=== PATIENT | male | born 1950 | race Caucasian/White ===

== ENCOUNTER 2017-07-16 06:29 | Emergency (ER) | payer MEDICARE, OTHER ==
[2015-05-01 12:41] VITALS: Wt 86.4 kg
[~2017-07-16 06:29] MED LIST: ACET500T68 PO; ALBU8.5H12 IH; ASP325 PO; ATOR40TA24 PO; ATR80PT PO; BUDE0.256 IH; CIPR-344 PO; CITA-156 PO; CLOP75TA43 PO; COM14R INH; DICY10CA11 PO; DULERAPT INH; ESOM40CA42 PO; EZET10TA41 PO; FAMO20TA28 PO; FENT-17 TD; GABA-549 PO; GABA-551 PO; HCTZ25 PO; HYDR-2966 PO; HYDR-4309 PO; HYDR2TAB74 PO; LISI-374 PO; LISI20TA29 PO; LOR5/325 PO; LORA-1455 PO; METO-224 PO; METO-734 PO; OMEP-125 PO; ONDA4TAB PO; ONDA4TAB97 PO; PANT40TA63 PO; PANT40TA65 PO; PROM-110 PO; PROM12.514 RC; PROM25SU8 PR; PROM25SU9 RC; RAMI5CAP72 PO; SUCR1TAB85 PO; TAMS0.4C25 PO; [UNRECOGNIZED DRUG - CODE] PO; [UNRECOGNIZED DRUG - OTHER] PO
[2017-07-16] MEDS ORDERED: LR(*) 1000 ML BAG 1,000 ML IV ONE (06:34)
[2017-07-16] MEDS ORDERED: ONDANSETRON 4 MG/2 ML VIAL IVP ONE (06:35)
[2017-07-16] MEDS ORDERED: PROMETHAZINE 25 MG/ML 1 ML AMP IVP ONE (06:35)
[2017-07-16] MEDS ORDERED: PRED-1 PO (06:35)
[2017-07-16] MEDS ORDERED: [UNRECOGNIZED DRUG - REMARK] (06:35)
[2017-07-16 07:01] LABS: PLATELET COUNT, AUTOMATED 293 K/uL (150-450)
[2017-07-16] MEDS ORDERED: NS(*) 0.9% 1000 ML BAG 1,000 ML IV ONE (08:45)
[2017-07-16] MEDS ORDERED: METOCLOPRAMIDE 10 MG/2 ML SDV IVP ONE (08:45)
--- NOTE | 2017-07-16 08:56 | ER Report ---
History and Physical Time Seen By MD: 06:50 Hx. of Stated Complaint: N/V/D FOR 5 DAYS. HPI/ROS This is a 67-year-old male with multiple chronic medical problems who is well- known to the emergency department. He presents frequently for intractable nausea and vomiting. He presented to the emergency department this morning complaining of 5 days of intractable nausea vomiting. Also is worried about his blood pressure. Says that he hasn't taken his blood pressure meds in 5 days due to inability to take by mouth. He denies fever or chills. States his discomfort and nausea and vomiting is the same type of episode that he has had multiple times in the past. Remainder of the 14 system rev: Yes Allergies: Coded Allergies: No Known Drug Allergies (Verified , 07/16/17) Home Meds Active Scripts Metoclopramide Hcl (REGLAN) 10 Mg Tablet, 10 MG PO 3-4XD for Nausea for 10 Days , #20 TAB Prov:KASH ALAMO MD 07/16/17 Ondansetron (ZOFRAN ODT) 4 Mg Tab.rapdis, 8 MG PO Q6H Y for prn, #20 TAB.DORIS Prov:LUCA JEAN [facility] 03/25/17 Promethazine HCl (Phenergan) 25 Mg Supp.rect, 1 SUPP MT Q4H Y for NAUSEA/ VOMITING, #12 1 Refill Prov:HUGO RIGGS DO 12/03/16 Reported Medications [Abt For Sinus Surg] No Conflict Check 07/16/17 Prednisone 10 Mg Tab (PREDNISONE 10 MG TAB) 10 Mg Tablet, 10 MG PO QDAY, TAB 07/16/17 Hydrochlorothiazide (HYDROCHLOROTHIAZIDE) 25 Mg Tablet, 1 TAB PO QDAY, TAB 12/07/15 Lisinopril (LISINOPRIL) 20 Mg Tablet, 20 MG PO QDAY, TAB 12/07/15 Ezetimibe (ZETIA) 10 Mg Tablet, 10 MG PO QDAY 04/24/15 Clopidogrel Bisulfate (PLAVIX) 75 Mg Tablet, 1 TAB PO QDAY TAKE ONE TABLET BY MOUTH EVERY DAY 08/22/14 Albuterol Sul Hfa 90 Mcg 8 Gm (VENTOLIN HFA 90 MCG 8 GM) 8.5 Gm Hfa.aer.ad, 1-2 PUFF IH 3-4XD Y for SHORTNESS OF BREATH, INHALER 08/22/14 Atorvastatin (LIPITOR) 80 Mg Tab, 1 TAB PO QDAY, TAB TAKE ONE TABLET BY MOUTH ONCE A DAY AT BED TIME 08/07/14 Reviewed Nurses Notes: Yes Old Medical Records Reviewed: Yes Hx Smoking: No Smoking Status: Never Smoker Exposure to Second Hand Smoke?: No Hx Substance Use Disorder: No Hx Alcohol Use: Yes ( DAILY, states none this month) Constitutional Vital Sign - Last 24 Hours 07/16/17 07/16/17 07/16/17 07/16/17 06:33 06:33 06:36 06:45 Temp 98.0 Pulse 70 75 69 70 Resp 18 B/P (MAP) 186/124 (144) 186/124 187/129 (148) 181/123 (142) Pulse Ox 93 97 93 93 O2 Delivery Room Air 07/16/17 07/16/17 07/16/17 07/16/17 06:58 07:00 07:15 07:30 Pulse 69 69 67 B/P (MAP) 183/119 (140) 182/116 (138) 181/124 (143) Pulse Ox 98 98 98 O2 Flow Rate 3.0 07/16/17 07/16/17 07/16/17 07/16/17 07:45 08:00 08:15 08:30 Pulse 70 68 70 B/P (MAP) 197/125 (149) 184/116 (138) 179/114 (135) 204/130 (154) Pulse Ox 98 97 98 07/16/17 07/16/17 07/16/17 07/16/17 08:37 08:45 09:00 09:15 Pulse 70 70 B/P (MAP) 199/119 (145) 194/123 (146) 181/121 (141) 187/121 (143) Pulse Ox 98 97 07/16/17 07/16/17 07/16/17 07/16/17 09:30 09:45 10:00 10:15 Pulse 71 74 71 B/P (MAP) 138/83 (101) 115/79 (91) 138/94 (109) 166/101 (122) Pulse Ox 98 98 07/16/17 10:30 Pulse 75 B/P (MAP) 163/101 (121) Pulse Ox 95 Intake and Output 07/16/17 07/16/17 07/17/17 15:00 23:00 07:00 Intake Total 1000 ml Balance 1000 ml Physical Exam General Appearance: The patient is alert, has no immediate need for airway protection and no current signs of toxicity. Eyes: Pupils equal and round no injection. Respiratory: Chest is non tender, lungs are clear to auscultation. Cardiac: regular rate and rhythm Gastrointestinal: Abdomen is soft and non tender, no masses, bowel sounds normal. DIFFERENTIAL DIAGNOSIS: After history and physical exam differential diagnosis was considered for abdominal pain including but not limited to appendicitis, cholecystitis, gastritis and urinary tract infection. Medical Decision Making Data Points Result Diagram: 07/16/17 0640 07/16/17 0640 Laboratory Hematology Test 07/16/17 06:40 Red Blood Count 5.24 M/uL (4.00-5.60) Mean Corpuscular Volume 96.8 fL (80.0-96.0) Mean Corpuscular Hemoglobin 33.3 pg (26.0-33.0) Mean Corpuscular Hemoglobin Concent 34.4 g/dL (32.0-36.0) Red Cell Distribution Width 14.2 % (11.5-14.5) Mean Platelet Volume 7.5 fL (7.2-11.1) Neutrophils (%) (Auto) 78.2 % (39.4-72.5) Lymphocytes (%) (Auto) 14.7 % (17.6-49.6) Monocytes (%) (Auto) 6.4 % (4.1-12.4) Eosinophils (%) (Auto) 0.2 % (0.4-6.7) Basophils (%) (Auto) 0.5 % (0.3-1.4) Nucleated RBC Relative Count (auto) 0.1 /100WBC Neutrophils # (Auto) 6.5 K/uL (2.0-7.4) Lymphocytes # (Auto) 1.2 K/uL (1.3-3.6) Monocytes # (Auto) 0.5 K/uL (0.3-1.0) Eosinophils # (Auto) 0.0 K/uL (0.0-0.5) Basophils # (Auto) 0.0 K/uL (0.0-0.1) Nucleated RBC Absolute Count (auto) 0.01 K/uL Sodium Level 138 mmol/L (137-145) Potassium Level 3.5 mmol/L (3.5-5.0) Chloride Level 96 mmol/L (98-107) Carbon Dioxide Level 27 mmol/L (22-30) Blood Urea Nitrogen 28 mg/dl (9-21) Creatinine 1.40 mg/dl (0.66-1.25) Glomerular Filtration Rate Calc 50.9 Random Glucose 126 mg/dl (75-110) Calcium Level 10.4 mg/dl (8.4-10.2) Total Bilirubin 0.8 mg/dl (0.2-1.3) Aspartate Amino Transf (AST/SGOT) 27 U/L (0-35) Alanine Aminotransferase (ALT/SGPT) 32 U/L (0-56) Alkaline Phosphatase 76 U/L (0-126) Total Protein 8.2 gm/dl (6.3-8.2) Albumin 4.4 g/dl (3.5-5.0) Amylase Level 56 U/L (0-110) Lipase 49 U/L (23-300) Chemistry Test 07/16/17 06:40 White Blood Count 8.3 k/uL (4.5-11.0) Red Blood Count 5.24 M/uL (4.00-5.60) Hemoglobin 17.5 g/dL (14.0-18.0) Hematocrit 50.8 % (42.0-52.0) Mean Corpuscular Volume 96.8 fL (80.0-96.0) Mean Corpuscular Hemoglobin 33.3 pg (26.0-33.0) Mean Corpuscular Hemoglobin Concent 34.4 g/dL (32.0-36.0) Red Cell Distribution Width 14.2 % (11.5-14.5) Platelet Count 293 K/uL (150-450) Mean Platelet Volume 7.5 fL (7.2-11.1) Neutrophils (%) (Auto) 78.2 % (39.4-72.5) Lymphocytes (%) (Auto) 14.7 % (17.6-49.6) Monocytes (%) (Auto) 6.4 % (4.1-12.4) Eosinophils (%) (Auto) 0.2 % (0.4-6.7) Basophils (%) (Auto) 0.5 % (0.3-1.4) Nucleated RBC Relative Count (auto) 0.1 /100WBC Neutrophils # (Auto) 6.5 K/uL (2.0-7.4) Lymphocytes # (Auto) 1.2 K/uL (1.3-3.6) Monocytes # (Auto) 0.5 K/uL (0.3-1.0) Eosinophils # (Auto) 0.0 K/uL (0.0-0.5) Basophils # (Auto) 0.0 K/uL (0.0-0.1) Nucleated RBC Absolute Count (auto) 0.01 K/uL Glomerular Filtration Rate Calc 50.9 Calcium Level 10.4 mg/dl (8.4-10.2) Total Bilirubin 0.8 mg/dl (0.2-1.3) Aspartate Amino Transf (AST/SGOT) 27 U/L (0-35) Alanine Aminotransferase (ALT/SGPT) 32 U/L (0-56) Alkaline Phosphatase 76 U/L (0-126) Total Protein 8.2 gm/dl (6.3-8.2) Albumin 4.4 g/dl (3.5-5.0) Amylase Level 56 U/L (0-110) Lipase 49 U/L (23-300) ED Course/Re-evaluation ED Course This is a 67-year-old male with multiple medical problems who is frequently seen in the emergency department for intractable nausea and vomiting. He presented to the emergency department early this morning with 5 days of intractable nausea and vomiting and inability to take his home blood pressure meds. This episode was similar to multiple episodes he has had in the past. Says he did not call his primary care physician in the past 5 days because "he will just come to the emergency department." His labs are at baseline including a mildly elevated calcium which she has had in the past. He was given 2 L of IV fluids. He was initially given Phenergan as well as Zofran with continued intractable nausea and vomiting. He was then given 10 mg of IV Reglan which controlled his symptoms. He stated that he felt much better, and was able to take by mouth in the ED without vomiting. I will discharge him with by mouth Reglan. I told him not to take Reglan and Phenergan at the same time. He voices understanding, and will follow-up with his primary care doctor. Decision to Disposition Date: Jul 16, 2017 Decision to Disposition Time: 10:17 Depart Departure Latest Vital Signs Vital Signs Date Time Temp Pulse Resp B/P (MAP) Pulse Ox O2 Delivery O2 Flow Rate FiO2 07/16/17 10:30 75 163/101 (121) 95 07/16/17 06:58 3.0 07/16/17 06:33 98.0 18 Room Air Impression: Primary Impression: Nausea & vomiting Condition: Improved Disposition: HOME OR SELF-CARE Referrals: CODY FLETCHER MD (PCP) New Scripts Metoclopramide Hcl (REGLAN) 10 Mg Tablet 10 MG PO 3-4XD for Nausea for 10 Days, #20 TAB Prov: KASH ALAMO MD 07/16/17 Patient Instructions: Acute Nausea and Vomiting (ED) Additional Instructions: Stop taking Phenergan if you are taking Reglan. Do not take both of these medications. Take one or the other Problem Qualifiers Primary Impression: Nausea & vomiting Vomiting type: unspecified Vomiting Intractability: non-intractable Qualified Codes: R11.2 - Nausea with vomiting, unspecified KASH ALAMO MD Jul 16, 2017 08:56
[2017-07-16] MEDS ORDERED: METO-734 PO (10:21)
[2017-07-16 10:30] VITALS: BP 163/101
== END 2017-07-16 11:24 | disposition home or self-care (01) ==
LOC: ER 06:34
DX: R11.2 Nausea with vomiting, unspecified (principal)
CPT/HCPCS: 82150; 83690; 85025; 96361; 96374; 96375; 99284; J2405; J2550; J2765; J7030; J7120; 82040; 82247; 82310; 82374; 82435; 82565; 82947; 84075; 84132; 84155; 84295; 84450; 84460; 84520

== ENCOUNTER 2017-08-26 12:03 | Emergency (ER) | payer MEDICARE, OTHER ==
[2015-05-01 12:41] VITALS: Wt 86.2 kg
[~2017-08-26 12:03] MED LIST changes: +PRED-1 PO; +[UNRECOGNIZED DRUG - REMARK]
--- NOTE | 2017-08-26 12:10 | ER Report ---
History and Physical Time Seen By MD: 12:09 Hx. of Stated Complaint: HX OF N/V FOR 3 DAYS, HAS HAD MULTIPLE TIMES IN THE PAST HPI/ROS CHIEF COMPLAINT: Recurrent nausea and vomiting HISTORY OF PRESENT ILLNESS: This is a 67-year-old male, well-known to the emergency department, presents to the emergency department with his for nausea vomiting. Patient has had recurrent nausea and vomiting for last several years secondary to a surgery. Patient states that over the last 3 days he's had an increase in nausea vomiting, is unable to keep anything down today, trying one dose of Reglan "threw it up" however did not try the Phenergan suppositories or the ODT Zofran and. Patient denies increased abdominal pain, headaches, shortness of breath or chest pain. Patient does state that his vomit was darker than usual however there was no blood or coffee grounds noted. No diarrhea or dark stools. REVIEW OF SYSTEMS: Respiratory: No cough, no dyspnea. Cardiovascular: No chest pain, no palpitations. Gastrointestinal: As above. Musculoskeletal: No back pain. Allergies: Coded Allergies: No Known Drug Allergies (Verified , 08/26/17) Home Meds Active Scripts Promethazine HCl (Phenergan) 25 Mg Supp.rect, 25 MG MO Q8H, #12 SUPP.RECT 0 Refills Prov:LUCA JEAN [facility]- 08/26/17 Ondansetron (ZOFRAN ODT) 4 Mg Tab.rapdis, 4 MG PO Q6H Y for NAUSEA/VOMITING, # 20 TAB.DORIS Prov:LUCA JEAN [facility] 08/26/17 Metoclopramide Hcl (REGLAN) 10 Mg Tablet, 10 MG PO 3-4XD for Nausea for 10 Days , #20 TAB Prov:KASH ALAMO MD 07/16/17 Reported Medications Hydrochlorothiazide (HYDROCHLOROTHIAZIDE) 25 Mg Tablet, 1 TAB PO QDAY, TAB 12/07/15 Lisinopril (LISINOPRIL) 20 Mg Tablet, 20 MG PO QDAY, TAB 12/07/15 Ezetimibe (ZETIA) 10 Mg Tablet, 10 MG PO QDAY 04/24/15 Clopidogrel Bisulfate (PLAVIX) 75 Mg Tablet, 1 TAB PO QDAY TAKE ONE TABLET BY MOUTH EVERY DAY 08/22/14 Albuterol Sul Hfa 90 Mcg 8 Gm (VENTOLIN HFA 90 MCG 8 GM) 8.5 Gm Hfa.aer.ad, 1-2 PUFF IH 3-4XD Y for SHORTNESS OF BREATH, INHALER 08/22/14 Atorvastatin (LIPITOR) 80 Mg Tab, 1 TAB PO QDAY, TAB TAKE ONE TABLET BY MOUTH ONCE A DAY AT BED TIME 08/07/14 Discontinued Reported Medications [Abt For Sinus Surg] No Conflict Check 07/16/17 Prednisone 10 Mg Tab (PREDNISONE 10 MG TAB) 10 Mg Tablet, 10 MG PO QDAY, TAB 07/16/17 Discontinued Scripts Ondansetron (ZOFRAN ODT) 4 Mg Tab.rapdis, 8 MG PO Q6H Y for prn, #20 TAB.DORIS Prov:LUCA JEAN [facility] 03/25/17 Promethazine HCl (Phenergan) 25 Mg Supp.rect, 1 SUPP MO Q4H Y for NAUSEA/ VOMITING, #12 1 Refill Prov:HUGO RIGGS DO 12/03/16 Past Medical/Surgical History Patient has a past medical and surgical history of migraines, heart attack, hypertension, hypercholesterolemia, asthma, cyclical vomiting, GERD, hiatal hernia surgery with complications, gallbladder disease, cholecystectomy, wears glasses, hearing aides, depression, anxiety, cardiac catheter, laminectomy, tonsillectomy. Reviewed Nurses Notes: Yes Hx Smoking: No Smoking Status: Never Smoker Exposure to Second Hand Smoke?: No Hx Substance Use Disorder: No Hx Alcohol Use: Yes ( DAILY, states none this month) Constitutional Vital Sign - Last 24 Hours 08/26/17 08/26/17 08/26/17 08/26/17 12:06 12:06 12:30 12:33 Temp 98.4 Pulse 78 Resp 20 B/P (MAP) 163/111 163/111 (128) 151/95 (113) Pulse Ox 91 92 O2 Delivery Room Air 08/26/17 08/26/17 08/26/17 08/26/17 13:00 13:03 13:30 13:33 Pulse 79 75 B/P (MAP) 132/72 (92) 152/85 (107) Pulse Ox 94 99 08/26/17 08/26/17 08/26/17 08/26/17 13:38 14:00 14:08 14:30 Pulse 72 72 B/P (MAP) 97/60 (72) 136/79 (98) Pulse Ox 100 91 08/26/17 08/26/17 08/26/17 08/26/17 14:38 15:00 15:30 16:00 Pulse 76 B/P (MAP) 150/90 (110) 157/95 (115) 147/88 (107) Pulse Ox 93 Intake and Output 08/26/17 08/26/17 08/27/17 15:00 23:00 07:00 Intake Total 1000 ml 1000 ml Balance 1000 ml 1000 ml Physical Exam General Appearance: The patient is alert, has no immediate need for airway protection and no current signs of toxicity. Eyes: Pupils equal and round no injection. Respiratory: Chest is non tender, lungs are clear to auscultation. Cardiac: regular rate and rhythm, no murmurs, clicks or rubs. Gastrointestinal: Abdomen is soft and non tender, no masses, bowel sounds normal. Musculoskeletal: Neck: Neck is supple and non tender. Extremities have full range of motion and are non tender. Skin: No rashes or lesions. DIFFERENTIAL DIAGNOSIS: After history and physical exam differential diagnosis was considered for nausea and vomiting including but not limited to gastroenteritis, gastritis, appendicitis, and medication side effect. Medical Decision Making Data Points Result Diagram: 08/26/17 1212 08/26/17 1212 Laboratory Hematology Test 08/26/17 12:12 Red Blood Count 5.60 M/uL (4.00-5.60) Mean Corpuscular Volume 94.2 fL (80.0-96.0) Mean Corpuscular Hemoglobin 32.6 pg (26.0-33.0) Mean Corpuscular Hemoglobin Concent 34.6 g/dL (32.0-36.0) Red Cell Distribution Width 13.8 % (11.5-14.5) Mean Platelet Volume 7.9 fL (7.2-11.1) Neutrophils (%) (Auto) 84.2 % (39.4-72.5) Lymphocytes (%) (Auto) 10.1 % (17.6-49.6) Monocytes (%) (Auto) 5.4 % (4.1-12.4) Eosinophils (%) (Auto) 0.0 % (0.4-6.7) Basophils (%) (Auto) 0.3 % (0.3-1.4) Nucleated RBC Relative Count (auto) 0.1 /100WBC Neutrophils # (Auto) 8.8 K/uL (2.0-7.4) Lymphocytes # (Auto) 1.1 K/uL (1.3-3.6) Monocytes # (Auto) 0.6 K/uL (0.3-1.0) Eosinophils # (Auto) 0.0 K/uL (0.0-0.5) Basophils # (Auto) 0.0 K/uL (0.0-0.1) Nucleated RBC Absolute Count (auto) 0.01 K/uL Sodium Level 137 mmol/L (137-145) Potassium Level 3.7 mmol/L (3.5-5.0) Chloride Level 96 mmol/L (98-107) Carbon Dioxide Level 23 mmol/L (22-30) Blood Urea Nitrogen 44 mg/dl (9-21) Creatinine 1.50 mg/dl (0.66-1.25) Glomerular Filtration Rate Calc 47.0 Random Glucose 139 mg/dl (75-110) Calcium Level 9.9 mg/dl (8.4-10.2) Total Bilirubin 0.9 mg/dl (0.2-1.3) Aspartate Amino Transf (AST/SGOT) 29 U/L (0-35) Alanine Aminotransferase (ALT/SGPT) 24 U/L (0-56) Alkaline Phosphatase 94 U/L (0-126) Total Protein 8.4 gm/dl (6.3-8.2) Albumin 4.8 g/dl (3.5-5.0) Lipase 88 U/L (23-300) Chemistry Test 08/26/17 12:12 White Blood Count 10.4 k/uL (4.5-11.0) Red Blood Count 5.60 M/uL (4.00-5.60) Hemoglobin 18.2 g/dL (14.0-18.0) Hematocrit 52.7 % (42.0-52.0) Mean Corpuscular Volume 94.2 fL (80.0-96.0) Mean Corpuscular Hemoglobin 32.6 pg (26.0-33.0) Mean Corpuscular Hemoglobin Concent 34.6 g/dL (32.0-36.0) Red Cell Distribution Width 13.8 % (11.5-14.5) Platelet Count 275 K/uL (150-450) Mean Platelet Volume 7.9 fL (7.2-11.1) Neutrophils (%) (Auto) 84.2 % (39.4-72.5) Lymphocytes (%) (Auto) 10.1 % (17.6-49.6) Monocytes (%) (Auto) 5.4 % (4.1-12.4) Eosinophils (%) (Auto) 0.0 % (0.4-6.7) Basophils (%) (Auto) 0.3 % (0.3-1.4) Nucleated RBC Relative Count (auto) 0.1 /100WBC Neutrophils # (Auto) 8.8 K/uL (2.0-7.4) Lymphocytes # (Auto) 1.1 K/uL (1.3-3.6) Monocytes # (Auto) 0.6 K/uL (0.3-1.0) Eosinophils # (Auto) 0.0 K/uL (0.0-0.5) Basophils # (Auto) 0.0 K/uL (0.0-0.1) Nucleated RBC Absolute Count (auto) 0.01 K/uL Glomerular Filtration Rate Calc 47.0 Calcium Level 9.9 mg/dl (8.4-10.2) Total Bilirubin 0.9 mg/dl (0.2-1.3) Aspartate Amino Transf (AST/SGOT) 29 U/L (0-35) Alanine Aminotransferase (ALT/SGPT) 24 U/L (0-56) Alkaline Phosphatase 94 U/L (0-126) Total Protein 8.4 gm/dl (6.3-8.2) Albumin 4.8 g/dl (3.5-5.0) Lipase 88 U/L (23-300) ED Course/Re-evaluation Clinical Indication for ER IV: Hydration, IV Access ED Course The patient was admitted to room. A history physical obtained. Differential diagnoses were considered. An IV was started. A CBC, CMP were obtained. Slight hemoconcentration consistent with the patient's nausea and vomiting, Creatinine of 1.50, consistent with the patient's previous creatinine levels. Patient was given 1 L normal saline 2, 8 mg IV Zofran, 12.5 mg IV Phenergan, 1000 mg by mouth Tylenol. Patient states he is feeling better, nausea has improved, slight improvement with the Tylenol. Patient was instructed to follow-up with his primary care provider. Patient was also given a prescription for Zofran and Phenergan suppositories. Patient was instructed not to take the Phenergan and the Reglan together. Patient had no other questions or concerns at this time and was discharged home. 08/26/2017 1:07:06 pm patient states the nausea is mildly better however the patient states "I can't tell if it's nausea or chest pain that is causing nausea ". I did tell the patient that we will give him another liter of fluid and try Phenergan. Patient is on the treatment program. 08/26/2017 3:30:58 pm I did do the room, patient was on his right side resting comfortably. Patient did wake to voice patient is requesting Tylenol for his pain, I did order Tylenol. Patient is otherwise feeling better after the 2 L of normal saline and nausea medications. Decision to Disposition Date: August 26, 2017 Decision to Disposition Time: 16:06 Depart Departure Latest Vital Signs Vital Signs Date Time Temp Pulse Resp B/P (MAP) Pulse Ox O2 Delivery O2 Flow Rate FiO2 08/26/17 16:00 147/88 (107) 08/26/17 14:38 76 93 08/26/17 12:06 98.4 20 Room Air Impression: Primary Impression: Nausea & vomiting Condition: Improved Disposition: HOME OR SELF-CARE Referrals: CODY FLETCHER MD (PCP) New Scripts Promethazine HCl (Phenergan) 25 Mg Supp.rect 25 MG MO Q8H, #12 SUPP.RECT 0 Refills Prov: LUCA JEAN [facility]- 08/26/17 Ondansetron (ZOFRAN ODT) 4 Mg Tab.rapdis 4 MG PO Q6H Y for NAUSEA/VOMITING, #20 TAB.DORIS Prov: LUCA JEAN [facility]- 08/26/17 Patient Instructions: Acute Nausea and Vomiting (ED) Additional Instructions: Drink sips of fluid, consider a clear liquid diet for the next 24 hours. Slowly progress into your normal diet after the 24 hours. Follow-up with your primary care provider as scheduled. The Reglan is not working try the ODT Zofran, if here and able to keep the Reglan down then try the Phenergan suppository just don't take the Reglan and Phenergan together. Return to the emergency department for any other concerns or worsening symptoms. Problem Qualifiers Primary Impression: Nausea & vomiting Vomiting type: unspecified Vomiting Intractability: non-intractable Qualified Codes: R11.2 - Nausea with vomiting, unspecified LUCA JEANP- August 26, 2017 12:10
[2017-08-26] MEDS ORDERED: NS(*) 0.9% 1000 ML BAG 1,000 ML IV ONE ×2 (12:18→13:05)
[2017-08-26] MEDS ORDERED: ONDANSETRON 4 MG/2 ML VIAL IVP ONE (12:20)
[2017-08-26 12:27] LABS: PLATELET COUNT, AUTOMATED 275 K/uL (150-450)
[2017-08-26] MEDS ORDERED: PROMETHAZINE 25 MG/ML 1 ML AMP IVP ONE (13:05)
[2017-08-26] MEDS ORDERED: ACETAMINOPHEN 500 MG TAB PO ONE (15:10)
[2017-08-26 16:00] VITALS: BP 147/88
[2017-08-26] MEDS ORDERED: PROM25SU8 PR (16:19)
[2017-08-26] MEDS ORDERED: ONDA4TAB PO (16:19)
== END 2017-08-26 16:25 | disposition home or self-care (01) ==
LOC: ER 12:11
DX: R11.2 Nausea with vomiting, unspecified (principal)
CPT/HCPCS: 83690; 85025; 96361; 96374; 96375; 99284; A9270; J2405; J2550; J7030; 82040; 82247; 82310; 82374; 82435; 82565; 82947; 84075; 84132; 84155; 84295; 84450; 84460; 84520

== ENCOUNTER 2017-12-13 08:06 | Emergency (ER) | payer MEDICARE, OTHER ==
[2015-05-01 12:41] VITALS: Wt 86.2 kg
--- NOTE | 2017-12-13 08:09 | ER Report ---
History and Physical Time Seen By MD: 08:09 HPI/ROS CHIEF COMPLAINT: Nausea vomiting HISTORY OF PRESENT ILLNESS: Patient is a 67-year-old male with history of cyclical vomiting syndrome status post a hiatal hernia repair that occurred in 2014. Patient has frequent visits to emergency department for intractable vomiting. States that symptoms began this past Sunday and if increased in frequency. He feels "dehydrated" and is having generalized abdominal discomfort. No reported fever. States that he is unable to keep anything down. REVIEW OF SYSTEMS: Respiratory: No cough, no dyspnea. Cardiovascular: No chest pain, no palpitations. Gastrointestinal: Intractable vomiting generalized abdominal pain Musculoskeletal: No back pain. Allergies: Coded Allergies: No Known Drug Allergies (Verified , 12/13/17) Home Meds Active Scripts Promethazine HCl (Phenergan) 25 Mg Supp.rect, 25 MG CA Q8H, #12 SUPP.RECT 0 Refills Prov:LUCA JEAN [facility] 08/26/17 Reported Medications Hydrochlorothiazide (HYDROCHLOROTHIAZIDE) 25 Mg Tablet, 1 TAB PO QDAY, TAB 12/07/15 Lisinopril (LISINOPRIL) 20 Mg Tablet, 20 MG PO QDAY, TAB 12/07/15 Ezetimibe (ZETIA) 10 Mg Tablet, 10 MG PO QDAY 04/24/15 Clopidogrel Bisulfate (PLAVIX) 75 Mg Tablet, 1 TAB PO QDAY TAKE ONE TABLET BY MOUTH EVERY DAY 08/22/14 Albuterol Sul Hfa 90 Mcg 8 Gm (VENTOLIN HFA 90 MCG 8 GM) 8.5 Gm Hfa.aer.ad, 1-2 PUFF IH 3-4XD PRN for SHORTNESS OF BREATH, INHALER 08/22/14 Atorvastatin (LIPITOR) 80 Mg Tab, 1 TAB PO QDAY, TAB TAKE ONE TABLET BY MOUTH ONCE A DAY AT BED TIME 08/07/14 Discontinued Scripts Ondansetron (ZOFRAN ODT) 4 Mg Tab.rapdis, 4 MG PO Q6H PRN for NAUSEA/VOMITING, #20 TAB.DORIS Prov:LUCA JEAN [facility] 08/26/17 Metoclopramide Hcl (REGLAN) 10 Mg Tablet, 10 MG PO 3-4XD for Nausea for 10 Days, #20 TAB Prov:KASH ALAMO MD 07/16/17 Past Medical/Surgical History Patient has a past medical and surgical history of migraines, heart attack, hypertension, hypercholesterolemia, asthma, cyclical vomiting, GERD, hiatal hernia surgery with complications, gallbladder disease, cholecystectomy, wears glasses, hearing aides, depression, anxiety, cardiac catheter, laminectomy, tonsillectomy. Hx Smoking: No Smoking Status: Never Smoker Exposure to Second Hand Smoke?: No Hx Substance Use Disorder: No Hx Alcohol Use: Yes ( DAILY, states none this month) Constitutional Vital Sign - Last 24 Hours 12/13/17 12/13/17 12/13/17 12/13/17 08:09 08:13 08:36 09:00 Temp 98.2 Pulse 74 ??? Resp 20 B/P (MAP) 154/96 154/96 (115) 153/112 (126) Pulse Ox 95 O2 Delivery Room Air Physical Exam General Appearance: The patient is alert, has no immediate need for airway protection and no signs of toxicity. Eyes: Pupils equal and round no pallor or injection. ENT, Mouth: Mucous membranes are moist. Respiratory: There are no retractions, lungs are clear to auscultation. Cardiovascular: Regular rate and rhythm. Gastrointestinal: Abdomen is diffusely tender without voluntary or involuntary guarding no obvious peritoneal signs Neurological: Awake and alert Skin: Warm and dry, no rashes. Musculoskeletal: Neck is supple non tender. Extremities are nontender, nonswollen and have full range of motion. Medical Decision Making Data Points Result Diagram: 12/13/17 0820 12/13/17 0820 Laboratory Hematology Test 12/13/17 08:20 Red Blood Count 5.25 M/uL (4.00-5.60) Mean Corpuscular Volume 98.5 fL (80.0-96.0) Mean Corpuscular Hemoglobin 32.9 pg (26.0-33.0) Mean Corpuscular Hemoglobin Concent 33.4 g/dL (32.0-36.0) Red Cell Distribution Width 15.0 % (11.5-14.5) Mean Platelet Volume 7.6 fL (7.2-11.1) Neutrophils (%) (Auto) 76.7 % (39.4-72.5) Lymphocytes (%) (Auto) 16.6 % (17.6-49.6) Monocytes (%) (Auto) 6.3 % (4.1-12.4) Eosinophils (%) (Auto) 0.0 % (0.4-6.7) Basophils (%) (Auto) 0.4 % (0.3-1.4) Nucleated RBC Relative Count (auto) 0.0 /100WBC Neutrophils # (Auto) 5.5 K/uL (2.0-7.4) Lymphocytes # (Auto) 1.2 K/uL (1.3-3.6) Monocytes # (Auto) 0.4 K/uL (0.3-1.0) Eosinophils # (Auto) 0.0 K/uL (0.0-0.5) Basophils # (Auto) 0.0 K/uL (0.0-0.1) Nucleated RBC Absolute Count (auto) 0.00 K/uL Sodium Level 142 mmol/L (137-145) Potassium Level 3.7 mmol/L (3.5-5.0) Chloride Level 100 mmol/L (98-107) Carbon Dioxide Level 27 mmol/L (22-30) Blood Urea Nitrogen 48 mg/dl (9-21) Creatinine 1.50 mg/dl (0.66-1.25) Glomerular Filtration Rate Calc 47.0 Random Glucose 162 mg/dl (75-110) Calcium Level 9.5 mg/dl (8.4-10.2) Total Bilirubin 1.0 mg/dl (0.2-1.3) Aspartate Amino Transf (AST/SGOT) 32 U/L (0-35) Alanine Aminotransferase (ALT/SGPT) 37 U/L (0-56) Alkaline Phosphatase 61 U/L (0-126) Total Protein 8.1 g/dl (6.3-8.2) Albumin 4.7 g/dl (3.5-5.0) Lipase 76 U/L (23-300) Helicobacter pylori IgG Antibody Negative (NEGATIVE) Chemistry Test 12/13/17 08:20 White Blood Count 7.1 k/uL (4.5-11.0) Red Blood Count 5.25 M/uL (4.00-5.60) Hemoglobin 17.3 g/dL (14.0-18.0) Hematocrit 51.7 % (42.0-52.0) Mean Corpuscular Volume 98.5 fL (80.0-96.0) Mean Corpuscular Hemoglobin 32.9 pg (26.0-33.0) Mean Corpuscular Hemoglobin Concent 33.4 g/dL (32.0-36.0) Red Cell Distribution Width 15.0 % (11.5-14.5) Platelet Count 230 K/uL (150-450) Mean Platelet Volume 7.6 fL (7.2-11.1) Neutrophils (%) (Auto) 76.7 % (39.4-72.5) Lymphocytes (%) (Auto) 16.6 % (17.6-49.6) Monocytes (%) (Auto) 6.3 % (4.1-12.4) Eosinophils (%) (Auto) 0.0 % (0.4-6.7) Basophils (%) (Auto) 0.4 % (0.3-1.4) Nucleated RBC Relative Count (auto) 0.0 /100WBC Neutrophils # (Auto) 5.5 K/uL (2.0-7.4) Lymphocytes # (Auto) 1.2 K/uL (1.3-3.6) Monocytes # (Auto) 0.4 K/uL (0.3-1.0) Eosinophils # (Auto) 0.0 K/uL (0.0-0.5) Basophils # (Auto) 0.0 K/uL (0.0-0.1) Nucleated RBC Absolute Count (auto) 0.00 K/uL Glomerular Filtration Rate Calc 47.0 Calcium Level 9.5 mg/dl (8.4-10.2) Total Bilirubin 1.0 mg/dl (0.2-1.3) Aspartate Amino Transf (AST/SGOT) 32 U/L (0-35) Alanine Aminotransferase (ALT/SGPT) 37 U/L (0-56) Alkaline Phosphatase 61 U/L (0-126) Total Protein 8.1 g/dl (6.3-8.2) Albumin 4.7 g/dl (3.5-5.0) Lipase 76 U/L (23-300) Helicobacter pylori IgG Antibody Negative (NEGATIVE) EKG/Imaging Imaging [place] [facility] [place]IENT NAME: J Carlos Hill : 1950 MR: [id number] V: [id number] EXAM DATE: ORDERING PHYSICIAN: KATYA CALZADA TECHNOLOGIST: [place] [facility] [place] Patient: J Carlos Hill : 1950 Visit/Account:[id number] Date of Sevice: 12/13/2017 Exam type: ACUTE ABDOMEN SERIES 3 VIEW History: Abdomen pain, nausea and vomiting Comparison: June 25, 2016 Findings: Supine and upright views the abdomen demonstrate a nonspecific bowel gas pattern. There is no free air beneath hemidiaphragms. Surgical clips are present in the right upper quadrant. PA view the chest reveals no evidence of acute infiltrates, pleural effusions or pulmonary edema. Cardiac silhouette is normal in size. There is mild prominence of the hilar shadows although appears similar to the prior study.. IMPRESSION: 1. Nonspecific bowel gas pattern No evidence of acute pulmonary consolidation Report Dictated By: Isamar Mckeon MD at 12/13/2017 9:54 AM Report E-Signed By: Isamar Mckeon MD at 12/13/2017 9:56 AM WSN:[email or web address] ED Course/Re-evaluation Clinical Indication for ER IV: Hydration, IV Access ED Course 12/13/2017 8:34:20 am plan at this time will be to place an IV to give IV hydration, antiemetics. We will check CBC CMP lipase. We'll also perform a acute abdominal series. We'll also give IV multivitamin. 12/13/2017 9:58:57 am patient still reporting nausea although the retching seems to have improved. Plan at this time will be to use haloperidol as an antiemetic we will give 5 mg IV. 12/13/2017 10:54:41 am patient sleeping comfortably symptoms improved after 5 mg of IV Haldol Decision to Disposition Date: Dec 13, 2017 Decision to Disposition Time: 10:53 Depart Departure Latest Vital Signs Vital Signs Date Time Temp Pulse Resp B/P (MAP) Pulse Ox O2 Delivery O2 Flow Rate FiO2 12/13/17 09:00 153/112 (126) 12/13/17 08:36 ??? 12/13/17 08:09 98.2 20 95 Room Air Impression: Primary Impression: Cyclic vomiting syndrome Condition: Improved Disposition: HOME OR SELF-CARE Referrals: CODY FLETHCER MD (PCP) 2 Days if symptoms persist Patient Instructions: Acute Nausea and Vomiting (ED) Problem Qualifiers Primary Impression: Cyclic vomiting syndrome Vomiting Intractability: intractable Nausea presence: with nausea Qualified Codes: G43.A1 - Cyclical vomiting, intractable KATYA CALZADA MD Dec 13, 2017 08:09
[2017-12-13] MEDS ORDERED: FAMOTIDINE(*) 20MG/50ML PREMIX 50 ML IVPB ONE (08:26)
[2017-12-13] MEDS: NS(*) 0.9% 1000 ML BAG 1,000 ML IV ONE ×2 (08:26→08:34)
[2017-12-13] MEDS ORDERED: diphenhydrAMINE 50 MG/ML VIAL IVP ONE (08:30)
[2017-12-13] MEDS ORDERED: METOCLOPRAMIDE 10 MG/2 ML SDV IVP ONE (08:30)
[2017-12-13] MEDS ORDERED: MULTIVITAMINS IV ONE (08:30)
[2017-12-13] MEDS ORDERED: NS IV ONE (08:30)
[2017-12-13 08:39] LABS: PLATELET COUNT, AUTOMATED 230 K/uL (150-450)
[2017-12-13] MEDS ORDERED: MULTIVITAMINS 10 ML VIAL IV ONE (08:55)
[2017-12-13 09:00] VITALS: BP 153/112
[2017-12-13] MEDS ORDERED: HALOPERIDOL LACT 5 MG/ML VIAL IM ONE (10:00)
--- NOTE | 2017-12-13 10:00 | RADIOLOGY IMAGING REPORT ---
[place] [facility] [place] J [place] Hill : 1950 MR: [id number] V: [id number] EXAM DATE: ORDERING PHYSICIAN: KATYA CALZADA TECHNOLOGIST: Location: [facility] - [place] Patient: J Carlos Hill : 1950 Visit/Account:[id number] Date of Sevice: 12/13/2017 Exam type: ACUTE ABDOMEN SERIES 3 VIEW History: Abdomen pain, nausea and vomiting Comparison: June 25, 2016 Findings: Supine and upright views the abdomen demonstrate a nonspecific bowel gas pattern. There is no free a ir beneath hemidiaphragms. Surgical clips are present in the right upper quadrant. PA view the ches t reveals no evidence of acute infiltrates, pleural effusions or pulmonary edema. Cardiac silhouette is normal in size. There is mild prominence of the hilar shadows although appears similar to the pr ior study.. IMPRESSION: 1. Nonspecific bowel gas pattern No evidence of acute pulmonary consolidation Report Dictated By: Isamar Mckeon MD at 12/13/2017 9:54 AM Report E-Signed By: Isamar Mckeon MD at 12/13/2017 9:56 AM WSN:[email or web address]
== END 2017-12-13 11:04 | disposition home or self-care (01) ==
LOC: ER 08:09
DX: G43.A1 Cyclical vomiting, in migraine, intractable (principal)
CPT/HCPCS: 74022; 83690; 85025; 86677; 96365; 96366; 96368; 96372; 96375; 99284; J1200; J1630; J2765; J3490; J7030; 82040; 82247; 82310; 82374; 82435; 82565; 82947; 84075; 84132; 84155; 84295; 84450; 84460; 84520

== ENCOUNTER 2018-04-12 10:17 | Inpatient (IN) | payer MEDICARE, OTHER ==
[2015-05-01 12:41] VITALS: Ht 177.8 cm; Wt 80.3 kg
[~2018-04-12] VITALS: Ht 177.8 cm; Wt 80.3 kg
[~2018-04-12 10:17] MED LIST changes: -HYDR-4309 PO; +HYDR-653 PO
--- NOTE | 2018-04-12 10:27 | ER Report ---
History and Physical Time Seen By MD: 10:26 Hx. of Stated Complaint: pt has been throwing up since sunday HPI/ROS CHIEF COMPLAINT: Nausea, vomiting, by mouth intolerance HISTORY OF PRESENT ILLNESS: Patient is a 68-year-old male here with complaints of nausea, vomiting, inability to tolerate by mouth intake since Sunday. Patient reports having recurrent episodes of cyclical vomiting during which she is unable to keep down food or fluids. He has been taking Phenergan at home in suppository form without relief of symptoms. Patient reports that he has been evaluated numerous times for similar episodes. Patient has markedly fluid depleted at time of evaluation. Patient is nontoxic in appearance. REVIEW OF SYSTEMS: Constitutional: No fever, no chills. Eyes: No discharge. ENT: No sore throat. Cardiovascular: No chest pain, no palpitations. Respiratory: No cough, no shortness of breath. Gastrointestinal: + epigastric abdominal pain, + persistent nausea and vomiting. Genitourinary: + decreased UO Musculoskeletal: + chronic back pain. Skin: No rashes. Neurological: + headache. Allergies: Coded Allergies: No Known Drug Allergies (Verified , 12/13/17) Home Meds Reported Medications Budesonide (BUDESONIDE) 0.5 Mg/2 Ml Ampul.neb, 1 MG NA QDAY, ML USES 2 AMPULES MIXED WITH SALINE A NASAL RINSE 04/12/18 Pantoprazole Sodium (PANTOPRAZOLE SODIUM) 40 Mg Tablet.dr, 40 MG PO QDAY, TAB.SR 04/12/18 Budesonide/Formoterol Fumarate (SYMBICORT 80-4.5 MCG INHALER) 10.2 Gm Hfa.aer.ad, 2 PUFF PO BID 04/12/18 Tamsulosin Hcl (FLOMAX) 0.4 Mg Cap.er.24h, 0.4 MG PO QDAY, CAP 04/12/18 Hydrochlorothiazide (HYDROCHLOROTHIAZIDE) 25 Mg Tablet, 1 TAB PO QDAY, TAB 12/07/15 Lisinopril (LISINOPRIL) 20 Mg Tablet, 20 MG PO QDAY, TAB 12/07/15 Ezetimibe (ZETIA) 10 Mg Tablet, 10 MG PO QDAY 04/24/15 Clopidogrel Bisulfate (PLAVIX) 75 Mg Tablet, 1 TAB PO QDAY TAKE ONE TABLET BY MOUTH EVERY DAY 5/23/15 Albuterol Sul Hfa 90 Mcg 8 Gm (VENTOLIN HFA 90 MCG 8 GM) 8.5 Gm Hfa.aer.ad, 1-2 PUFF IH Q4-6H PRN for SHORTNESS OF BREATH, INHALER 08/22/14 Atorvastatin (LIPITOR) 80 Mg Tab, 1 TAB PO QDAY, TAB TAKE ONE TABLET BY MOUTH ONCE A DAY AT BED TIME 08/07/14 Discontinued Scripts Promethazine HCl (Phenergan) 25 Mg Supp.rect, 25 MG [place] Q8H, #12 SUPP.RECT 0 Refills Prov:LUCA JEAN [employer] SOFTWARE CONSULTANT-BC 08/26/17 Hx Smoking: No Smoking Status: Never Smoker Exposure to Second Hand Smoke?: No Hx Substance Use Disorder: No Hx Alcohol Use: Yes ( DAILY, states none this month) Constitutional Vital Sign - Last 24 Hours 04/12/18 04/12/18 04/12/18 04/12/18 10:21 10:21 10:30 10:47 Temp 98.4 Pulse 97 75 Resp 20 B/P (MAP) 143/92 (109) 143/92 124/91 (102) Pulse Ox 96 94 O2 Delivery Room Air 04/12/18 04/12/18 04/12/18 04/12/18 11:00 11:05 11:30 11:35 Pulse 70 64 B/P (MAP) 145/94 (111) 144/97 (113) Pulse Ox 86 98 04/12/18 04/12/18 04/12/18 04/12/18 12:00 12:05 12:10 12:30 Pulse 69 68 B/P (MAP) 168/105 (126) 179/107 (131) Pulse Ox 100 99 04/12/18 04/12/18 04/12/18 04/12/18 12:40 13:00 13:10 13:30 Pulse 71 63 B/P (MAP) 184/109 (134) 170/88 (115) Pulse Ox 99 98 04/12/18 13:40 Pulse 66 Pulse Ox 98 Physical Exam General Appearance: The patient is alert, has no immediate need for airway protection and no signs of toxicity. Moderate distress due to dehydration and nausea Eyes: Pupils equal and round no pallor or injection. ENT, Mouth: Mucous membranes are dry Respiratory: There are no retractions, lungs are clear to auscultation. Cardiovascular: Regular rate and rhythm. Gastrointestinal: Abdomen is soft and diffusely tender, no masses, bowel sounds normal. no rebound or guarding Neurological: No focal neuro deficits Skin: Warm and dry, no rashes. Musculoskeletal: Neck is supple non tender. Extremities are nontender, nonswollen and have full range of motion. DIFFERENTIAL DIAGNOSIS: After history and physical exam differential diagnosis was considered for abdominal pain including but not limited to appendicitis, cholecystitis, gastritis and urinary tract infection. Medical Decision Making Data Points Result Diagram: 04/12/18 1031 04/12/18 1031 Laboratory Hematology Test 04/12/18 10:31 Red Blood Count 5.79 M/uL (4.00-5.60) Mean Corpuscular Volume 97.9 fL (80.0-96.0) Mean Corpuscular Hemoglobin 32.9 pg (26.0-33.0) Mean Corpuscular Hemoglobin Concent 33.6 g/dL (32.0-36.0) Red Cell Distribution Width 13.7 % (11.5-14.5) Mean Platelet Volume 8.1 fL (7.2-11.1) Neutrophils (%) (Auto) 87.4 % (39.4-72.5) Lymphocytes (%) (Auto) 8.1 % (17.6-49.6) Monocytes (%) (Auto) 4.3 % (4.1-12.4) Eosinophils (%) (Auto) 0.0 % (0.4-6.7) Basophils (%) (Auto) 0.2 % (0.3-1.4) Nucleated RBC Relative Count (auto) 0.2 /100WBC Neutrophils # (Auto) 8.2 K/uL (2.0-7.4) Lymphocytes # (Auto) 0.8 K/uL (1.3-3.6) Monocytes # (Auto) 0.4 K/uL (0.3-1.0) Eosinophils # (Auto) 0.0 K/uL (0.0-0.5) Basophils # (Auto) 0.0 K/uL (0.0-0.1) Nucleated RBC Absolute Count (auto) 0.02 K/uL Sodium Level 137 mmol/L (137-145) Potassium Level 3.6 mmol/L (3.5-5.0) Chloride Level 96 mmol/L (98-107) Carbon Dioxide Level 26 mmol/L (22-30) Blood Urea Nitrogen 62 mg/dl (9-21) Creatinine 1.70 mg/dl (0.66-1.25) Glomerular Filtration Rate Calc 40.5 Random Glucose 140 mg/dl (75-110) Lactate 2.0 mmol/L (0.7-2.1) Calcium Level 9.6 mg/dl (8.4-10.2) Total Bilirubin 1.2 mg/dl (0.2-1.3) Aspartate Amino Transf (AST/SGOT) 25 U/L (0-35) Alanine Aminotransferase (ALT/SGPT) 33 U/L (0-56) Alkaline Phosphatase 75 U/L (0-126) Total Protein 8.0 g/dl (6.3-8.2) Albumin 4.6 g/dl (3.5-5.0) Lipase 74 U/L (23-300) Chemistry Test 04/12/18 10:31 White Blood Count 9.4 k/uL (4.5-11.0) Red Blood Count 5.79 M/uL (4.00-5.60) Hemoglobin 19.1 g/dL (14.0-18.0) Hematocrit 56.7 % (42.0-52.0) Mean Corpuscular Volume 97.9 fL (80.0-96.0) Mean Corpuscular Hemoglobin 32.9 pg (26.0-33.0) Mean Corpuscular Hemoglobin Concent 33.6 g/dL (32.0-36.0) Red Cell Distribution Width 13.7 % (11.5-14.5) Platelet Count 274 K/uL (150-450) Mean Platelet Volume 8.1 fL (7.2-11.1) Neutrophils (%) (Auto) 87.4 % (39.4-72.5) Lymphocytes (%) (Auto) 8.1 % (17.6-49.6) Monocytes (%) (Auto) 4.3 % (4.1-12.4) Eosinophils (%) (Auto) 0.0 % (0.4-6.7) Basophils (%) (Auto) 0.2 % (0.3-1.4) Nucleated RBC Relative Count (auto) 0.2 /100WBC Neutrophils # (Auto) 8.2 K/uL (2.0-7.4) Lymphocytes # (Auto) 0.8 K/uL (1.3-3.6) Monocytes # (Auto) 0.4 K/uL (0.3-1.0) Eosinophils # (Auto) 0.0 K/uL (0.0-0.5) Basophils # (Auto) 0.0 K/uL (0.0-0.1) Nucleated RBC Absolute Count (auto) 0.02 K/uL Glomerular Filtration Rate Calc 40.5 Lactate 2.0 mmol/L (0.7-2.1) Calcium Level 9.6 mg/dl (8.4-10.2) Total Bilirubin 1.2 mg/dl (0.2-1.3) Aspartate Amino Transf (AST/SGOT) 25 U/L (0-35) Alanine Aminotransferase (ALT/SGPT) 33 U/L (0-56) Alkaline Phosphatase 75 U/L (0-126) Total Protein 8.0 g/dl (6.3-8.2) Albumin 4.6 g/dl (3.5-5.0) Lipase 74 U/L (23-300) ED Course/Re-evaluation ED Course Patient is a 68-year-old male here with complaints of dehydration, persistent nausea and vomiting since Sunday. Patient reports having similar episodes numerous times before causing profound dehydration. Patient declined CT imaging of the abdomen and pelvis. Patient was found to have acute renal insufficiency with creatinine 1.7 with no prior history of [facility] ED per patient report. Patient was given 2 L normal saline bolus, Zofran, Reglan without appreciable improvement in patient's clinical status. Patient was discussed with Dr. Mosquera who accepted to the hospitalist service for further optimization and care. Patient was stable at time of admission. Decision to Disposition Date: Apr 12, 2018 Decision to Disposition Time: 13:39 Depart Departure Latest Vital Signs Vital Signs Date Time Temp Pulse Resp B/P (MAP) Pulse Ox O2 Delivery O2 Flow Rate FiO2 04/12/18 13:40 66 98 04/12/18 13:30 170/88 (115) 04/12/18 10:21 98.4 20 Room Air Impression: Primary Impression: Acute kidney insufficiency Additional Impressions: Epigastric pain Intractable nausea and vomiting Condition: Condition Unchanged Disposition: Admitted from ER Referrals: CODY FLETCHER MD (PCP) Problem Qualifiers KASEY MCCARTNEY DO Apr 12, 2018 10:27
[2018-04-12] MEDS ORDERED: TAMS0.4C25 PO (10:28)
[2018-04-12] MEDS ORDERED: BUDE10.2 INH (10:28)
[2018-04-12] MEDS ORDERED: NS(*) 0.9% 1000 ML BAG 1,000 ML IV ONE ×2 (10:37→12:10)
[2018-04-12] MEDS ORDERED: fentaNYL CITR 100 MCG/2 ML AMP IVP ONE ×2 (10:40→12:30)
[2018-04-12] MEDS ORDERED: ONDANSETRON 4 MG/2 ML VIAL IVP ONE (10:40)
[2018-04-12] MEDS ORDERED: IOPAMIDOL 76% 75 ML INFUS BTL 0 ML ONE (10:50)
[2018-04-12 11:01] LABS: PLATELET COUNT, AUTOMATED 274 K/uL (150-450)
[2018-04-12] MEDS ORDERED: METOCLOPRAMIDE 10 MG/2 ML SDV IVP ONE (12:20)
[2018-04-12] MEDS ORDERED: ACETAMINOPHEN 325 MG TAB PO PRN (13:35)
[2018-04-12] MEDS ORDERED: ALBUTEROL 8 GM INHALER INH PRN ×2 (13:35→14:10)
[2018-04-12] MEDS ORDERED: INFLUENZA VIRUS VAC 0.5ML SYR IM ONLY ONE (13:35)
--- NOTE | 2018-04-12 14:08 | History & Physical ---
History of Present Illness Chief Complaint Nausea, Vomiting, Inability to tolerate PO intake, Dehydration. History of Present Illness Patient is a 68-year-old male who presented to the emergency department with complaints of nausea, vomiting, inability to tolerate by mouth intake since Sunday. He does report some epigastric tenderness. Patient reports having recurrent episodes of cyclical vomiting during which he is unable to keep down food or fluids. He has been taking Phenergan at home in suppository form without relief of symptoms. Patient reports that he has been evaluated in the ER numerous times for similar episodes, which have not required admission. He has a history of Freida fundoplication procedure 4 years ago. He was noted to have increased creatinine and signs of dehydration. He was recommended for admission for IV hydration. History Problems: (1) Asthma Status: Chronic (2) Hyperlipidemia Status: Chronic (3) History of Freida fundoplication Status: Chronic (4) Urinary retention Status: Chronic (5) CAD (coronary artery disease) Status: Chronic Home Meds Reported Medications Tamsulosin Hcl (FLOMAX) 0.4 Mg Cap.er.24h, 0.4 MG PO QDAY, CAP 04/12/18 Budesonide/Formoterol Fumarate (SYMBICORT 160-4.5 MCG INHALER) 10.2 Gm Inh, 10.2 GM INH BID, INH 04/12/18 Hydrochlorothiazide (HYDROCHLOROTHIAZIDE) 25 Mg Tablet, 1 TAB PO QDAY, TAB 12/07/15 Lisinopril (LISINOPRIL) 20 Mg Tablet, 20 MG PO QDAY, TAB 12/07/15 Ezetimibe (ZETIA) 10 Mg Tablet, 10 MG PO QDAY 04/24/15 Clopidogrel Bisulfate (PLAVIX) 75 Mg Tablet, 1 TAB PO QDAY TAKE ONE TABLET BY MOUTH EVERY DAY 08/22/14 Albuterol Sul Hfa 90 Mcg 8 Gm (VENTOLIN HFA 90 MCG 8 GM) 8.5 Gm Hfa.aer.ad, 1-2 PUFF IH 3-4XD PRN for SHORTNESS OF BREATH, INHALER 08/22/14 Atorvastatin (LIPITOR) 80 Mg Tab, 1 TAB PO QDAY, TAB TAKE ONE TABLET BY MOUTH ONCE A DAY AT BED TIME 08/07/14 Discontinued Scripts Promethazine HCl (Phenergan) 25 Mg Supp.rect, 25 MG UT Q8H, #12 SUPP.RECT 0 Refills Prov:LUCA JEAN [employer]IT REBUILDER-BC 08/26/17 Allergies: Coded Allergies: No Known Drug Allergies (Verified , 12/13/17) Patient History: Acne CHILD, Age:27 FH: COPD (chronic obstructive pulmonary disease) MOTHER, , Age:75 FH: LA (myocardial infarction) FATHER, , Age:78 FH: breast cancer BROTHER OR SISTER, Age:60 FH: hypercholesterolemia FATHER, , Age:78 FH: hypertension MOTHER, , Age:75 FH: stroke MOTHER, , Age:75 Hx Smoking: No Smoking Status: Never Smoker Exposure to Second Hand Smoke?: No Caffeine Intake: Coffee, Tea Caffeine/Cups Per Day: 1 liter/day Hx Alcohol Use: Yes ( DAILY, states none this month) Hx Substance Use Disorder: No Social Drug Use: Former Social Drugs: Marijuana Review of Systems All Systems Reviewed/Normal: Yes, Except as Noted Gastrointestinal: Nausea, Vomiting, Other (epigastric pain) Exam Vital Signs Vital Signs Date Time Temp Pulse Resp B/P (MAP) Pulse Ox O2 Delivery O2 Flow Rate FiO2 04/12/18 12:05 69 100 04/12/18 12:00 168/105 (126) 04/12/18 10:21 98.4 20 Room Air General Appearance: Alert, Awake, No Acute Distress, Afebrile Neuro: No Gross deficits Cardiovascular: Regular Rate and Rhythm Respiratory: No Respiratory Distress, Clear to Auscultation GI: Other (pain to palpation at epigastric region, abd soft) Extremities: Warm, Perfused; No Edema Psych: Alert & Oriented X3, Appropriate Mood & Affect Medical Decision Making Data Points Result Diagram: 04/12/18 1031 04/12/18 1031 Assessment and Plan Problems: (1) Cyclic vomiting syndrome Status: Acute Assessment & Plan: He presented with 5 days of nausea and vomiting. He tried Phenergan suppositories at home without relief. He is noted to have dehydration and elevated creatinine. He will be placed on IV fluids overnight and be given antiemetics. He will be placed on clear liquid diet at this time until he can tolerate po intake. (2) Acute kidney failure Status: Acute Assessment & Plan: His creatinine was 1.7 upon admission, which appears to be elevated from 1.5 in December. He will get IV hydration overnight. Recheck BMP in the morning. (3) CAD (coronary artery disease) Status: Chronic Assessment & Plan: LA in 2012. No stents placed. He is on chronic treatment with Plavix. Continue. (4) Hyperlipidemia Status: Chronic Assessment & Plan: He is on chronic treatment with Atorvastatin. Continue. (5) Asthma Status: Chronic Assessment & Plan: He is on chronic treatment with Symbicort. Continue. (6) Urinary retention Status: Chronic Assessment & Plan: He is on chronic treatment with Flomax. Continue. (7) Essential hypertension Status: Chronic Assessment & Plan: He is on chronic treatment with Lisinopril and Hydrochlorothiazide. These will be held secondary to his elevated creatinine. He will be given a one time dose of Amlodipine today to help elevated blood pressures. Venous Thromboembolism Antithrombotics Is Pt On Any Antithrombotics?: Yes Exam Sepsis Risk: No Definite Risk Problem Qualifiers (1) Cyclic vomiting syndrome: Vomiting Intractability: intractable Nausea presence: with nausea Qualified Codes: G43.A1 - Cyclical vomiting, intractable FRANCI OLMSTEAD Apr 12, 2018 14:08
[2018-04-12] MEDS ORDERED: amLODIPine BESYL(*) 5 MG TAB PO ONE ×2 (14:10→21:00)
[2018-04-12 14:27] VITALS: BP 163/104
[2018-04-12] MEDS: NS(*) 0.9% 1000 ML BAG 1,000 ML IV PRN (14:44)
[2018-04-12] MEDS ORDERED: BUDE0.5A6 (14:49)
[2018-04-12] MEDS ORDERED: PANT40TA65 PO (14:49)
[2018-04-12] MEDS ORDERED: BUDE10.25 PO (14:49)
[2018-04-12] MEDS ORDERED: ACETAMINOPHEN 1000 MG/100 ML IVPB ONE (15:30)
--- NOTE | 2018-04-12 16:44 | Medical Nutrition Therapy ---
Nutrition Anthropometrics Height (Inches): 70.00 Height (Calculated Centimeters: 177.416242 Weight (Pounds): 177 Weight (Calculated Kilograms): 80.286 Charles Nutrition Score: Probably Inadequate Charles Nutrition Risk Score: 19 Dietary Referral Nutrition Risk Factors: Unplanned Loss >10lbs Nutrition Risk Comment: states "haven't been eating" Physical Findings Physical Appearance: Overweight BMI 25-29 Skin Appearance Skin Appearance: Edema Edema Location Modifier: Edema Location: Type of Edema: Degree of Edema: Gastrointestinal Symptoms GI Symtoms: Tube Present: Bowel Sounds: Recent Bowel Pattern: Stool Characteristics: Nutritional Diagnosis Nutritional Risk Acuity 1: NPO/CL > 3 days Past Medical History: Myocardial infarction, cardiac catheterization, hypercholesteremia, HTN, asthma, cholecystectomy, CAD, urinary rentition, Freida Fundoplication, gastroparisis, hyperlipidemia Nutritional Acuity: 1-High Nutrition Diagnosis: Altered GI Function Nutrition Etiology: Malabsorption/Intolerance Nutrition Problem/Etiology/Sym: Altered GI fuction as related to malabsorption/intolerance as evidenced by N/V/dehydration, Cl of 96, urinary ketones of 20, BUN of 62, creatinine of 1.70, and reported cyclic vomiting for 5+ days. Energy Requirement: 2640 (25*80*1.1(TEF)*1.2(activity factor)) Protein Requirement: 64 (0.8g protein/kg) Fluid Requirement: 2640 (1mL/1kcal) Diet Type: Clear Liquids Nutrition Intervention: Cont diet as ordered, Encourage intake, Incr diet as tolerated Nutrition Monitoring & Eval Nutritional Goals Comment: Progress from CL to MARILU at condition improves. RD Patient Assessment Time: [address] Assessment Type: RD Assessment Patient Nutrition Acuity: 1-High Follow Up Date: Apr 14, 2018 Nutritional Comment: Pt admitted with N/V/dehydration, inability to tolerate PO. Reports symptoms since Sunday (5 days). Dx with cyclic vomiting syndrome, AKF as indicated by BUN of 62 and creatinine of 1.70. Hx of asthma, hyperlipidemia, Nussen fundopication, urinary retention, and CAD. Medications include enoxaparin. RBC, Hgb, and Hct are elevated at 5.79, 19.1. and 56.7, respectively. Urinary ketones of 20 are elevated, most likely due to poor PO intake. Cl is low at 96. Random glucose of 140 is elevated. Currenlty on clear liquid diet. Encourage clear liquids. Progress diet as tolerated, and encouraged electrolyte drinks when tolerated. Monitor for progression of diet. -ANGEILCA ZAVALA Apr 12, 2018 16:44
[2018-04-12] MEDS: ONDANSETRON 4 MG/2 ML VIAL IVP PRN ×2 (17:53→23:09)
[2018-04-12] MEDS ORDERED: BUDESO/FORMOT 160/4.5 MCG 6 GM INH SCH (18:00)
[2018-04-12] MEDS: BUDESO/FORMOT 80/4.5 MCG 6.9GM INH SCH (18:19)
[2018-04-12 19:08] VITALS: BP 155/92
[2018-04-12] MEDS: ACETAMINOPHEN(*)1000 MG/100 ML 100 ML IVPB PRN (23:10)
[2018-04-13] MEDS: PROMETHAZINE 25 MG/ML 1 ML AMP IVP PRN ×3 (01:04→19:41)
[2018-04-13] MEDS: NS(*) 0.9% 1000 ML BAG 1,000 ML IV PRN ×2 (01:04→12:26)
[2018-04-13] MEDS: ONDANSETRON 4 MG/2 ML VIAL IVP PRN ×5 (02:17→23:10)
[2018-04-13] MEDS ORDERED: GI COCKTAIL 60 ML BTL PO ONE (02:40)
[2018-04-13] MEDS ORDERED: LIDOCAINE 2% VISC SLN 15ML UDC ONE (03:21)
[2018-04-13] MEDS ORDERED: MAG HYD/AL HYD/SIMETH 30ML UDC ONE (03:21)
[2018-04-13] MEDS ORDERED: ATRO/SCOPOL/HYOSCY/PB 5 ML ELX ONE ×2 (03:21→03:29)
[2018-04-13] MEDS ORDERED: GI COCKTAIL 60 ML BTL PO PRN (03:30)
[2018-04-13] MEDS: BUDESO/FORMOT 80/4.5 MCG 6.9GM INH SCH ×2 (05:30→16:47)
[2018-04-13 05:42] LABS: PLATELET COUNT, AUTOMATED 210 K/uL (150-450)
[2018-04-13] MEDS: ACETAMINOPHEN(*)1000 MG/100 ML 100 ML IVPB PRN ×3 (06:00→23:10)
[2018-04-13 06:56] VITALS: BP 110/78
[2018-04-13] MEDS: TAMSULOSIN HCL 0.4 MG CAP PO SCH (09:07)
[2018-04-13] MEDS: EZETIMIBE 10 MG TAB PO SCH (09:07)
[2018-04-13] MEDS: CLOPIDOGREL BISULFATE 75MG TAB PO SCH (09:07)
[2018-04-13] MEDS: ATORVASTATIN 40 MG TAB PO SCH (09:07)
[2018-04-13] MEDS: ENOXAPARIN 30 MG/0.3 ML SYR SC SCH (09:08)
--- NOTE | 2018-04-13 14:44 | Hospitalist Progress Note ---
Subjective Progress Notes Subjective The patient continues to have nausea, abdominal discomfort and decreased appetite. A GI cocktail last evening did not provide any relief of his symptoms. Physical Exam Vital Signs Date Time Temp Pulse Resp B/P (MAP) Pulse Ox O2 Delivery O2 Flow Rate FiO2 04/13/18 10:25 85 04/13/18 09:34 Room Air 04/13/18 08:24 1.0 04/13/18 06:56 98.4 65 20 110/78 (89) Intake and Output 04/13/18 07:00 Intake Total 3437 ml Output Total 470 ml Balance 2967 ml Intake Oral 480 ml IV Total 2957 ml Output Urine Total 320 ml Emesis 150 ml # Emeses 50 General Appearance: Alert, Awake, Other (Appears uncomfortable at times.) Neuro: No Gross deficits Eyes: PERRLA Cardiovascular: Regular Rate and Rhythm Respiratory: Clear to Auscultation GI: Other (Soft, nondistended. Some discomfort with right sided palpation without mass or organomegaly.) Extremities: Warm, Perfused Psych: Appropriate Mood & Affect Result Diagram: 04/13/1851304/13/18513 Assessment and Plan Problems: (1) Cyclic vomiting syndrome Status: Acute Assessment & Plan: He presented with 5 days of nausea and vomiting. He tried Phenergan suppositories at home without relief. He is noted to have dehydration and elevated creatinine. He has been placed on IV fluids and antiemetics. Will continue clear liquid diet at this time until he can tolerate po intake. (2) Acute kidney failure Status: Acute Assessment & Plan: His creatinine was 1.7 upon admission, which appears to be elevated from 1.5 in December. This has improved with hydration to 1.0. BUN remains elevated at 33. Will continue IV hydration overnight. Recheck BMP in the morning. (3) CAD (coronary artery disease) Status: Chronic Assessment & Plan: [place] in 2011. No stents placed. He is on chronic treatment with Plavix. Continue. (4) Hyperlipidemia Status: Chronic Assessment & Plan: He is on chronic treatment with Atorvastatin. Continue. (5) Asthma Status: Chronic Assessment & Plan: He is on chronic treatment with Symbicort. Continue. (6) Urinary retention Status: Chronic Assessment & Plan: He is on chronic treatment with Flomax. Continue. (7) Essential hypertension Status: Chronic Assessment & Plan: He is on chronic treatment with Lisinopril and Hydrochlorothiazide. These will be held secondary to his elevated creatinine. He was given a one time dose of Amlodipine on admission to help elevated blood pressure. BP WNL today. Time Spent on Plan of Care: < 30 min Exam Sepsis Risk: No Definite Risk Problem Qualifiers (1) Cyclic vomiting syndrome: Vomiting Intractability: intractable Nausea presence: with nausea Qualified Codes: G43.A1 - Cyclical vomiting, intractable BIRGIT KENDALL MD Apr 13, 2018 14:44
[2018-04-13 17:20] VITALS: BP 176/108
[2018-04-13 19:13] VITALS: BP 152/100
[2018-04-13] MEDS: IBUPROFEN 200 MG TAB PO PRN (19:42)
[2018-04-14] MEDS: NS(*) 0.9% 1000 ML BAG 1,000 ML IV PRN ×2 (02:02→19:11)
[2018-04-14] MEDS: PROMETHAZINE 25 MG/ML 1 ML AMP IVP PRN ×2 (03:57→13:00)
[2018-04-14] MEDS: BUDESO/FORMOT 80/4.5 MCG 6.9GM INH SCH ×2 (05:24→16:49)
[2018-04-14] MEDS: ONDANSETRON 4 MG/2 ML VIAL IVP PRN ×2 (05:29→09:29)
[2018-04-14 06:18] LABS: PLATELET COUNT, AUTOMATED 172 K/uL (150-450)
[2018-04-14] MEDS: ACETAMINOPHEN(*)1000 MG/100 ML 100 ML IVPB PRN ×2 (08:45→16:52)
[2018-04-14 08:46] VITALS: BP 164/107
--- NOTE | 2018-04-14 09:48 | Medical Nutrition Therapy ---
Nutrition Anthropometrics Height (Inches): 70.00 Height (Calculated Centimeters: 177.609910 Weight (Pounds): 177 Weight (Calculated Kilograms): 80.286 Charles Nutrition Score: Probably Inadequate Charles Nutrition Risk Score: 19 Dietary Referral Nutrition Risk Factors: Unplanned Loss >10lbs Nutrition Risk Comment: states "haven't been eating" Physical Findings Physical Appearance: Overweight BMI 25-29 Skin Appearance Skin Appearance: Edema Edema Location Modifier: Edema Location: Type of Edema: Degree of Edema: Gastrointestinal Symptoms GI Symtoms: Nausea Tube Present: Bowel Sounds: Recent Bowel Pattern: Stool Characteristics: Nutritional Diagnosis Nutritional Risk Acuity 1: NPO/CL > 3 days Past Medical History: Myocardial infarction, cardiac catheterization, hypercholesteremia, HTN, asthma, cholecystectomy, CAD, urinary rentition, Fredia Fundoplication, gastroparisis, hyperlipidemia Nutritional Acuity: 1-High Nutrition Diagnosis: Altered GI Function Nutrition Etiology: Malabsorption/Intolerance Nutrition Problem/Etiology/Sym: Altered GI fuction as related to malabsorption/intolerance as evidenced by N/V/dehydration, Cl of 96, urinary ketones of 20, BUN of 62, creatinine of 1.70, and reported cyclic vomiting for 5+ days. Energy Requirement: 2640 (25*80*1.1(TEF)*1.2(activity factor)) Protein Requirement: 64 (0.8g protein/kg) Fluid Requirement: 2640 (1mL/1kcal) Diet Type: Clear Liquids Nutrition Intervention: Cont diet as ordered, Encourage intake, Incr diet as tolerated Nutrition Monitoring & Eval Nutritional Goals Comment: Progress from CL to MARILU as condition improves. RD Patient Assessment Time: [address] Assessment Type: RD Re-Assessment Patient Nutrition Acuity: 1-High Follow Up Date: Apr 15, 2018 Nutritional Comment: Pt admitted with N/V/dehydration, inability to tolerate PO. Reports symptoms since Sunday (5 days). Dx with cyclic vomiting syndrome, AKF as indicated by BUN of 62 and creatinine of 1.70. Hx of asthma, hyperlipidemia, Nussen fundopication, urinary retention, and CAD. Medications include enoxaparin. RBC, Hgb, and Hct are elevated at 5.79, 19.1. and 56.7, respectively. Urinary ketones of 20 are elevated, most likely due to poor PO intake. Cl is low at 96. Random glucose of 140 is elevated. Rennyy on clear liquid diet. Encourage clear liquids. Progress diet as tolerated, and encouraged electrolyte drinks when tolerated. Monitor for progression of diet. -DESEAN 04/14/18-Per MD note, pt has seen little improvement. Pt continues to have N/V/abdominal discomfort, and reported decreased appetite. Continues of CL diet day 3 in the hospital, and nutrition support may be recommended if oral intake is not progressed. Current intake of 0-50% of CL is low. BUN and creatinine have improved to WNL. Total protein of 6.0 and albumin of 3.4 are low, possibly due to poor intake. Pt taking enoxaparin. Monitor for progression of diet. -ANGELICA ZAVALA Apr 14, 2018 09:48
[2018-04-14] MEDS: TAMSULOSIN HCL 0.4 MG CAP PO SCH (09:55)
[2018-04-14] MEDS: EZETIMIBE 10 MG TAB PO SCH (09:56)
[2018-04-14] MEDS: CLOPIDOGREL BISULFATE 75MG TAB PO SCH ×2 (09:56→16:08)
[2018-04-14] MEDS: ATORVASTATIN 40 MG TAB PO SCH (09:56)
[2018-04-14] MEDS: ENOXAPARIN 30 MG/0.3 ML SYR SC SCH (11:58)
[2018-04-14] MEDS: LISINOPRIL 20 MG TAB PO SCH (11:59)
--- NOTE | 2018-04-14 14:27 | Hospitalist Progress Note ---
Subjective Progress Notes Subjective 68M admitted for intractable n/v. YAS overnight, reports continued abdominal pain and nausea/retching. Patient Complains of: Neurological: No: Confusion Respiratory: No: Cough Gastrointestinal: Nausea Physical Exam Vital Signs Date Time Temp Pulse Resp B/P (MAP) Pulse Ox O2 Delivery O2 Flow Rate FiO2 04/14/18 08:46 98.9 69 16 164/107 (126) 92 Room Air 04/13/18 08:24 1.0 Intake and Output 04/14/18 07:00 Intake Total 2296 ml Output Total 800 ml Balance 1496 ml Intake Oral 220 ml IV Total 2076 ml Output Urine Total 800 ml # Voids 2 General Appearance: Alert, Awake, No Acute Distress, Afebrile Neuro: No Gross deficits Cardiovascular: Normal Rhythm & Peripheral Pulses Respiratory: No Respiratory Distress GI: Soft and Non-Tender Extremities: Soft and Non Tender, Warm, Pulses, Perfused; No Edema Integumentary: Skin Intact without Lesion / Mass Result Diagram: 04/14/1853904/14/18539 Assessment and Plan Problems: (1) Cyclic vomiting syndrome Status: Acute Assessment & Plan: He presented with 5 days of nausea and vomiting. He tried Phenergan suppositories at home without relief. He is noted to have dehydration and elevated creatinine. He has been placed on IV fluids and antiemetics. Cr improved, unclear etiology. Considered marijuana hyperemesis however patient denies any usage of recreational drugs. (2) Acute kidney failure Status: Acute Assessment & Plan: His creatinine was 1.7 upon admission, which appears to be elevated from 1.5 in December. Improved with hydration. (3) CAD (coronary artery disease) Status: Chronic Assessment & Plan: [place] in 2011. No stents placed. He is on chronic treatment with Plavix. Continue. (4) Hyperlipidemia Status: Chronic Assessment & Plan: He is on chronic treatment with Atorvastatin. Continue. (5) Asthma Status: Chronic Assessment & Plan: He is on chronic treatment with Symbicort. Continue. (6) Urinary retention Status: Chronic Assessment & Plan: He is on chronic treatment with Flomax. Continue. (7) Essential hypertension Status: Chronic Assessment & Plan: He is on chronic treatment with Lisinopril and Hydrochlorothiazide. These were held secondary to his elevated creatinine. Resume home Rx after Cr improved. Exam Sepsis Risk: No Definite Risk Problem Qualifiers (1) Cyclic vomiting syndrome: Vomiting Intractability: intractable Nausea presence: with nausea Qualified Codes: G43.A1 - Cyclical vomiting, intractable ALBERTO VALENCIA DO Apr 14, 2018 14:27
[2018-04-14 16:13] VITALS: BP 152/104
[2018-04-14] MEDS: HYDROCHLOROTHIAZIDE 25 MG TAB PO SCH (16:27)
[2018-04-14 19:26] VITALS: BP 119/84
[2018-04-14] MEDS: IBUPROFEN 200 MG TAB PO PRN (21:03)
[2018-04-15] MEDS: ACETAMINOPHEN(*)1000 MG/100 ML 100 ML IVPB PRN (01:15)
[2018-04-15] MEDS: PROMETHAZINE 25 MG/ML 1 ML AMP IVP PRN (03:27)
[2018-04-15 03:53] VITALS: BP 134/82
[2018-04-15] MEDS: BUDESO/FORMOT 80/4.5 MCG 6.9GM INH SCH (05:32)
[2018-04-15] MEDS: NS(*) 0.9% 1000 ML BAG 1,000 ML IV PRN (07:36)
[2018-04-15] MEDS: IBUPROFEN 200 MG TAB PO PRN (07:57)
[2018-04-15] MEDS ORDERED: PROM25SU8 RC (09:07)
--- NOTE | 2018-04-15 09:11 | Hospitalist Depart ---
Discharge Summary Reason for Hosp/Final Diag: (1) Cyclic vomiting syndrome Status: Acute Hospital Course & Plan: He presented with 5 days of nausea and vomiting. He tried Phenergan suppositories at home without relief. He was noted to have dehydration and elevated creatinine. He was placed on IV fluids and antiemetics. Cr improved, unclear etiology. Considered marijuana hyperemesis however patient denies any usage of recreational drugs. He will be sent home with Phenergan suppositories. He will follow up with PCP in 1 week if no improvement. (2) Acute kidney failure Status: Acute Hospital Course & Plan: His creatinine was 1.7 upon admission, which appears to be elevated from 1.5 in December. Improved with hydration. (3) CAD (coronary artery disease) Status: Chronic Hospital Course & Plan: [place] in 2011. No stents placed. He is on chronic treatment with Plavix. Continue. (4) Hyperlipidemia Status: Chronic Hospital Course & Plan: He is on chronic treatment with Atorvastatin. Continue. (5) Asthma Status: Chronic Hospital Course & Plan: He is on chronic treatment with Symbicort. Continue. (6) Urinary retention Status: Chronic Hospital Course & Plan: He is on chronic treatment with Flomax. Continue. (7) Essential hypertension Status: Chronic Hospital Course & Plan: He is on chronic treatment with Lisinopril and Hydrochlorothiazide. These were held secondary to his elevated creatinine. Resume home medications now that creatinine is improved. Departure Latest Vital Signs Vital Signs 04/13/18 04/15/18 04/15/18 08:24 03:53 07:37 Temp 98.8 Pulse 62 Resp 16 B/P (MAP) 134/82 (99) Pulse Ox 91 O2 Delivery Room Air O2 Flow Rate 1.0 Weight (Pounds): 177 Weight (Ounces): 7.0 Result Diagram: 04/14/1853904/14/18539 Condition: Improved Discharge: Home, Self Care Discharge Instructions Home Meds Active Scripts Promethazine HCl (Phenergan) 25 Mg Supp.rect, 25 MG RC Q8H PRN for NAUSEA, #20 SUPP Prov:FRANCI OLMSTEAD SPOT MACHINE OPERATOR 04/15/18 Reported Medications Budesonide (BUDESONIDE) 0.5 Mg/2 Ml Ampul.neb, 1 MG NA QDAY, ML USES 2 AMPULES MIXED WITH SALINE A NASAL RINSE 04/12/18 Pantoprazole Sodium (PANTOPRAZOLE SODIUM) 40 Mg Tablet.dr, 40 MG PO QDAY, TAB.SR 04/12/18 Budesonide/Formoterol Fumarate (SYMBICORT 80-4.5 MCG INHALER) 10.2 Gm Hfa.aer.ad, 2 PUFF PO BID 04/12/18 Tamsulosin Hcl (FLOMAX) 0.4 Mg Cap.er.24h, 0.4 MG PO QDAY, CAP 04/12/18 Hydrochlorothiazide (HYDROCHLOROTHIAZIDE) 25 Mg Tablet, 1 TAB PO QDAY, TAB 12/07/15 Lisinopril (LISINOPRIL) 20 Mg Tablet, 20 MG PO QDAY, TAB 12/07/15 Ezetimibe (ZETIA) 10 Mg Tablet, 10 MG PO QDAY 04/24/15 Clopidogrel Bisulfate (PLAVIX) 75 Mg Tablet, 1 TAB PO QDAY TAKE ONE TABLET BY MOUTH EVERY DAY 08/22/14 Albuterol Sul Hfa 90 Mcg 8 Gm (VENTOLIN HFA 90 MCG 8 GM) 8.5 Gm Hfa.aer.ad, 1-2 PUFF IH Q4-6H PRN for SHORTNESS OF BREATH, INHALER 08/22/14 Atorvastatin (LIPITOR) 80 Mg Tab, 1 TAB PO QDAY, TAB TAKE ONE TABLET BY MOUTH ONCE A DAY AT BED TIME 08/07/14 Discontinued Scripts Promethazine HCl (Phenergan) 25 Mg Supp.rect, 25 MG DE Q8H, #12 SUPP.RECT 0 Refills Prov:LUCA JEAN SPOT MACHINE OPERATOR-BC 08/26/17 Diet: Regular Activity: As Tolerated Special Instructions: Follow up with Primary Care Provider in one week. Copies to: CODY FLETCHER MD ; Venous Thromboembolism Antithrombotics Is Pt On Any Antithrombotics?: Yes Problem Qualifiers (1) Cyclic vomiting syndrome: Vomiting Intractability: intractable Nausea presence: with nausea Qualified Codes: G43.A1 - Cyclical vomiting, intractable FRANCI OLMSTEAD SPOT MACHINE OPERATOR Apr 15, 2018 09:11
[2018-04-15] MEDS: HYDROCHLOROTHIAZIDE 25 MG TAB PO SCH (10:30)
[2018-04-15] MEDS: TAMSULOSIN HCL 0.4 MG CAP PO SCH (10:30)
[2018-04-15] MEDS: ENOXAPARIN 30 MG/0.3 ML SYR SC SCH (10:31)
[2018-04-15] MEDS: EZETIMIBE 10 MG TAB PO SCH (10:31)
[2018-04-15] MEDS: LISINOPRIL 20 MG TAB PO SCH (10:31)
[2018-04-15] MEDS: ATORVASTATIN 40 MG TAB PO SCH (10:31)
[2018-04-15] MEDS: CLOPIDOGREL BISULFATE 75MG TAB PO SCH (10:31)
[2018-04-15 10:56] VITALS: BP 126/69
== END 2018-04-15 10:38 | disposition home or self-care (01) | DRG 684 ==
LOC: ER 10:38 → MED 13:44
PROVIDERS: ADMIT Internal Medicine; ATTEND Internal Medicine
DX: N17.9 Acute kidney failure, unspecified (principal); G43.A1 Cyclical vomiting, in migraine, intractable; E86.0 Dehydration; I25.10 Atherosclerotic heart disease of native coronary artery without angina pectoris; I10 Essential (primary) hypertension; J45.909 Unspecified asthma, uncomplicated; E78.5 Hyperlipidemia, unspecified; R33.9 Retention of urine, unspecified
CPT/HCPCS: 36415; 81001; 82040; 82247; 82310; 82374; 82435; 82565; 82947; 83605; 83690; 84075; 84132; 84155; 84295; 84450; 84460; 84520; 85025; 94640; 96374; 96375; 96376; 99285; J0131; J1650; J2405; J2550; J2765; J3010; J3535; J7030; Q9967